=== PATIENT | female | born 1970 | race Caucasian/White ===

== ENCOUNTER 2016-11-09 07:55 | Day surgery (SDC) | payer OTHER ==
[~2016-11-09 07:55] MED LIST: Lactated Ringers 1,000 ML IV SCH; Lidocaine 1%/Sod Bicarbonate in NS 8.4% 1 ML Syringe IV PRN; Sodium Chloride 0.9% 10 ML Syringe FLUSH PRN
--- NOTE | 2016-11-09 08:27 | PCM.PREANE ---
Preanesthetic Assessment - Anesthesia/Transfusion/Family Hx Anesthesia History: Prior Anesthesia Without Reaction Family History of Anesthesia Reaction: No Transfusion History: No Prior Transfusion(s) Type of Transfusion Reactions: Reports: Unknown - Review of Systems General: No Symptoms Pulmonary: No Symptoms Cardiovascular: No Symptoms, Palpitations (resolved with ablation) Gastrointestinal: No symptoms Neurological: No Symptoms Other: Reports: Thyroid Problems, Sinus Problem (allergies and uses nasacort) - Physical Assessment NPO Status Date: 11/08/16 O2 Sat by Pulse Oximetry: 96 Respiratory Rate: 16 Blood Pressure: 145/90 Temperature: 97.4 F Height: 5 ft 6.5 in Weight: 122.016 kg ASA Class: 2 Mental Status: Alert & Oriented x3 Airway Class: Mallampati = 1 Dentition: Reports: Normal Dentition Thyro-Mental Finger Breadths: 3 Mouth Opening Finger Breadths: 3 ROM/Head Extension: Full Lungs: Clear to auscultation, Normal respiratory effort Cardiovascular: Regular Rate, Regular Rhythm - Lab Values: Laboratory Last Values WBC 7.47 K/mm3 (3.98-10.04) 11/07/16 16:38 RBC 4.50 M/mm3 (3.98-5.22) 11/07/16 16:38 Hgb 13.9 gm/L (11.2-15.7) 11/07/16 16:38 Hct 40.4 % (34.1-44.9) 11/07/16 16:38 MCV 89.8 fl (79.4-94.8) 11/07/16 16:38 MCH 30.9 pg (25.6-32.2) 11/07/16 16:38 MCHC 34.4 g/dl (32.2-35.5) 11/07/16 16:38 RDW Std Deviation 42.6 fL (36.4-46.3) 11/07/16 16:38 Plt Count 316 K/mm3 (182-369) 11/07/16 16:38 MPV 9.5 fl (9.4-12.3) 11/07/16 16:38 Sodium 139 mEq/L (136-145) 11/07/16 16:38 Potassium 3.5 mEq/L (3.5-5.1) 11/07/16 16:38 Chloride 104 mEq/L (98-107) 11/07/16 16:38 Carbon Dioxide 22 mEq/L (21-32) 11/07/16 16:38 Anion Gap 16.5 (5-15) H 11/07/16 16:38 BUN 8 mg/dL (7-18) 11/07/16 16:38 Creatinine 1.0 mg/dL (0.55-1.02) 11/07/16 16:38 Est Cr Clr Drug Dosing 68.51 mL/min 11/07/16 16:38 Estimated GFR (MDRD) > 60 mL/min (>60) 11/07/16 16:38 BUN/Creatinine Ratio 8.0 (14-18) L 11/07/16 16:38 Glucose 157 mg/dL (74-106) H 11/07/16 16:38 Calcium 8.9 mg/dL (8.5-10.1) 11/07/16 16:38 Total Bilirubin 0.4 mg/dL (0.2-1.0) 11/07/16 16:38 AST 17 U/L (15-37) 11/07/16 16:38 ALT 35 U/L (14-59) 11/07/16 16:38 Alkaline Phosphatase 73 U/L (46-116) 11/07/16 16:38 Total Protein 7.5 g/dl (6.4-8.2) 11/07/16 16:38 Albumin 3.9 g/dl (3.4-5.0) 11/07/16 16:38 Globulin 3.6 gm/dL 11/07/16 16:38 Albumin/Globulin Ratio 1.1 (1-2) 11/07/16 16:38 Free T4 1.06 ng/dL (0.76-1.46) 11/07/16 16:38 TSH 3rd Generation 1.582 uIU/mL (0.358-3.74) 11/07/16 16:38 HCG, Quant < 1.0 mIU/mL 11/07/16 16:38 Urine Color Dark yellow (Yellow) 11/07/16 16:38 Urine Appearance Slt cloudy (Clear) H 11/07/16 16:38 Urine pH 5.5 (5.0-8.0) 11/07/16 16:38 Ur Specific [place] 1.025 (1.005-1.030) 11/07/16 16:38 Urine Protein Trace (Negative) H 11/07/16 16:38 Urine Glucose (UA) Negative (Negative) 11/07/16 16:38 Urine Ketones Negative (Negative) 11/07/16 16:38 Urine Occult Blood Negative (Negative) 11/07/16 16:38 Urine Nitrite Negative (Negative) 11/07/16 16:38 Urine Bilirubin Negative (Negative) 11/07/16 16:38 Urine Urobilinogen 0.2 (0.2-1.0) 11/07/16 16:38 Ur Leukocyte Esterase Negative (Negative) 11/07/16 16:38 Blood Type O POSITIVE 11/07/16 16:38 Gel Antibody Screen Negative 11/07/16 16:38 - Allergies Allergies/Adverse Reactions: Allergies Allergy/AdvReac Type Severity Reaction Status Date / Time clindamycin Allergy Other Verified 11/08/16 15:49 Penicillins AdvReac Diarrhea Verified 11/08/16 15:49 - Blood Blood Available: No - Anesthesia Plan Pre-Op Medication Ordered: None - Acknowledgements Anesthesia Type Planned: General Anesthesia Pt an Appropriate Candidate for the Planned Anesthesia: Yes Alternatives and Risks of Anesthesia Discussed w Pt/Guardian: Yes Pt/Guardian Understands and Agrees with Anesthesia Plan: Yes PreAnesthesia Questionnaire HEENT History: Reports: Impaired Vision Other HEENT History: wears glasses Cardiovascular History: Reports: Other (See Below) Other Cardiovascular History: palpitations, SVT, non sustaining VTACH Respiratory History: Reports: None Gastrointestinal History: Reports: GERD Genitourinary History: Reports: Renal Calculus, Other (See Below) Other Genitourinary History: stress urinary incontinence, cystocele, rectocele, chronic kidney disease BASKET OPERATOR History: Reports: Other (See Below) Other OB/BYN History: ovarian cyst, uterine fibroids Musculoskeletal History: Reports: Other (See Below) Other Musculoskeletal History: R wrist tendonitis, R foot pain, achilles tendonitis, hand pain Neurological History: Reports: None, Other (See Below) Other Neuro History: foot numbness Psychiatric History: Reports: None Endocrine/Metabolic History: Reports: Hypothyroidism, Obesity/BMI 30+ Hematologic History: Reports: None Immunologic History: Reports: None Oncologic (Cancer) History: Reports: None Dermatologic History: Reports: None - Past Surgical History Head Surgeries/Procedures: Reports: None Cardiovascular Surgical History: Reports: Cardiac Ablation, Other (See Below) Other Cardiovascular Surgeries/Procedures: angiogram GI Surgical History: Reports: Colonoscopy, Other (See Below) Other GI Surgeries/Procedures: laparoscopy for adhesions Female Surgical History: Reports: Lithotripsy/ESWL Musculoskeletal Surgical History: Reports: Other (See Below) Other Musculoskeletal Surgeries/Procedures:: R foot surgery - SUBSTANCE USE Smoking Status *Q: Never Smoker Tobacco Use Within Last Twelve Months: No Second Hand Smoke Exposure: No Days Per Week of Alcohol Use: 0 (rare) Recreational Drug Use History: No - HOME MEDS Home Medications: Home Meds Gabapentin [Neurontin] 600 mg PO BID 07/27/15 [History] Melatonin 5 mg PO BEDTIME 07/27/15 [History] Omeprazole 20 mg PO DAILY 07/27/15 [History] Levothyroxine Sodium [Synthroid] 75 mcg PO DAILY 10/14/15 [History] Calcium Carbonate/Vitamin D3 [Calcium 600 + Vit D Tablet] 2 tab PO DAILY [History] Cholecalciferol (Vitamin D3) [Vitamin D3] 5,000 mg PO DAILY 11/08/16 [History] Triamcinolone Acetonide [Nasacort] 1 spray NASBOTH BID 11/08/16 [History] - CURRENT (IN HOUSE) MEDS Current Meds: Current Medications Lactated Ringer's (Ringers, Lactated) 1,000 mls @ 125 mls/hr IV ASDIRECTED VALENTIN Stop: 11/09/16 23:00 Lidocaine/Sodium Bicarbonate (Buffered Lidocaine 1% In Ns 8.4%) 0.25 ml IV ONETIME PRN PRN Reason: Prior to IV Start Stop: 11/09/16 18:00 Sodium Chloride (Saline Flush) 10 ml FLUSH ASDIRECTED PRN PRN Reason: Keep Vein Open Stop: 11/09/16 18:00 Discontinued Medications Lidocaine/Epinephrine (Xylocaine 1% With Epinephrine 1:100,000) Confirm Administered Dose 20 ml .ROUTE .STK-MED ONE Stop: 11/09/16 08:00 Sodium Chloride (Normal Saline) Confirm Administered Dose 50 ml .ROUTE .STK-MED ONE Stop: 11/09/16 08:01
[2016-11-09] MEDS ORDERED: Midazolam 1 MG/ML 2 ML SDV ONE (09:08)
[2016-11-09] MEDS ORDERED: fentaNYL 250 MCG/5 ML SDV ONE (09:08)
[2016-11-09] MEDS ORDERED: Propofol 200 MG/20 ML SDV ONE (09:08)
[2016-11-09] MEDS ORDERED: Ondansetron 4 MG/2 ML SDV ONE (09:10)
[2016-11-09] MEDS ORDERED: Dexamethasone 4 MG/ML 5 ML MDV ONE (09:10)
[2016-11-09] MEDS ORDERED: ceFAZolin 1 GM Vial ONE (09:10)
[2016-11-09] MEDS ORDERED: Lidocaine 1% 4 ML ONE (09:10)
[2016-11-09] MEDS ORDERED: Rocuronium 50 MG/5 ML Vial ONE (09:10)
[2016-11-09] MEDS: Sodium Chloride 0.9% 50 ML SDV ONE ×2 (09:37→09:47)
[2016-11-09] MEDS: Lidocaine 1% with EPINEPHrine 1:100,000 20 ML MDV ONE ×2 (09:37→09:47)
[2016-11-09] MEDS ORDERED: HYDROmorphone 1 MG/ML Syringe ONE (09:45)
[2016-11-09] MEDS ORDERED: Lactated Ringers 1,000 ML ONE (09:47)
[2016-11-09] MEDS ORDERED: Neostigmine Methylsulfate 10 MG/10 ML MDV ONE (11:04)
[2016-11-09] MEDS ORDERED: Ondansetron 4 MG/2 ML SDV IVPUSH PRN ×2 (11:19→11:31)
[2016-11-09] MEDS ORDERED: Ketorolac 30 MG/ML SDV IVPUSH SCH (11:30)
[2016-11-09] MEDS ORDERED: diphenhydrAMINE 50 MG/ML SDV IVPUSH PRN (11:31)
[2016-11-09] MEDS ORDERED: Meperidine PF 50 MG/ML Syringe IM PRN (11:31)
--- NOTE | 2016-11-09 11:34 | PCM.POSTAN ---
POST ANESTHESIA ASSESSMENT - MENTAL STATUS Mental Status: somnolent - VITAL SIGNS Pulse Rate: 93 SaO2: 93 Resp Rate: 10 Blood Pressure: 141/80 Temperature: 36.9 C - RESPIRATORY Respiratory Status: respiratory rate WNL, airway patent, O2 saturation stable - CARDIOVASCULAR CV Status: pulse rate WNL, blood pressure stable - GASTROINTESTINAL GI Status: no symptoms - PAIN Pain Score: 0 - POST OP HYDRATION Hydration Status: adequate & stable
--- NOTE | 2016-11-09 11:34 | PCM.OPNOTE ---
- General Post-Op/Procedure Note Date of Surgery/Procedure: 11/09/16 Operative Procedure(s): Total vaginal hysterectomy, left salpingectomy, anterior and posterior vaginal repair, modified Moschcowitz procedure, subfascial mid-urethral sling procedure Findings: Patient has a grade 2-3 cystocele, grade 2 rectocele, grade 2 uterine descensus , uterus is normal size, ovaries were functional and benign in appearance as were the fallopian tubes bilaterally. She had a gaping introitus that allowed a 4 finger breath evaluation. Pre Op Diagnosis: 1. Cystocele. 2. Rectocele. 3. Uterine prolapse. 4. Stress urinary incontinence Post-Op Diagnosis: Same Anesthesia Technique: General ET tube Other Anesthesia Type: Local anesthesia with lidocaine quarter percent with epinephrine-30 cc tota Primary Surgeon: Zain Hidalgo Secondary Surgeon: Bryanna Roque Anesthesia Provider: [place] New Pathology: Uterus, left fallopian tube Fluid Replacement, Intraop: 1,500 (Crystalloid) EBL in mLs: 100 Drain/Tube Comments:: A red rubber catheter was used to fill low bladder at the end of the procedure. Complications: None Condition: Good Free Text/Narrative:: Surgery duration: 87 minutes Condition: Good Complications: None Procedure: The patient was taken to the operating room. She was placed in supine position on the operating table. General endotracheal anesthesia and was accomplished. Patient was given Ancef 3 g IV preop for infection prophylaxis and had sequential compression stockings in place for DVT prophylaxis. After positioning, prep and drape were accomplished in a routine fashion. The patient was then operated upon. Sterile weighted speculum was placed in the vagina and cervix was visualized. Cervix was injected with lidocaine quarter percent with epinephrine-20 cc total. A full circumference incision was made through the cervical epithelium and cervical epithelium was pushed well back off the cervix. Posterior cul-de-sac was entered sharply. The left uterosacral ligament was then crossclamped with a LigaSure vessel closure system. This is developed in routine fashion. Same was done on the right side. Anterior cul-de-sac was then entered without problems. The uterine vasculature, remainder of cardinal ligament, broad ligament and eventually fallopian tube and upper broad ligament pedicles were then developed using LigaSure vessel closure system. At this time the fallopian tube on the left side was isolated and using LigaSure vessel closure system meso-salpinx was cauterized. This effectively removed the fallopian tube, leaving the ovary in place. The right fallopian tube looked normal but was very difficult to access and was left in place. The posterior cuff was then run from approximately the 2:00 to the 10:00 position posteriorly with a running lock suture of 0 Monocryl. Modified Moschcowitz stitch was placed using 0 Monocryl effectively reducing the size of the posterior cul-de- sac area and reapproximating uterosacral ligaments midline and attaching them to the vaginal cuff.Hemostasis was confirmed at this time. Sponge instrument and needle counts are correct. The pursestring suture of 0 Monocryl was then used to close the peritoneal cavity. The anterior vaginal epithelium was identified. The cephalad-most portion of the cystocele near the vaginal cuff was grasped with Allis clamps x2 processing 1-1/2 cm from the midline bilaterally. A third Allis clamp was placed midline approximately 1/2 cm from the urethral meatus. The cystocele epithelium was put on stretch. It was found be somewhat cornified due to chronic external exposure. The epithelium was then infiltrated with lidocaine quarter percent with epinephrine approximately 10 cc total. A midline incision was then made after a transverse incision was made between the 2 cephalad-most Allis clamps. The midline incision then allow dissection of the epithelium off the underlying vesicovaginal fascia. This is done adequately in a bilateral fashion. The cystocele was then reduced using proximally four 0 Monocryl sutures to reapproximate the lateral support tissue midline. When this was reduced the excess epithelium was removed bilaterally with a Metzenbaum scissors and the epithelium was reapproximated with running sutures of 3-0 Monocryl. Hemostasis was confirmed at this time. Vaginal cuff was then closed with a running suture of 0 Monocryl. The subfascial mid-urethral hammock/sling procedure was then performed. The epithelium overlying the urethra was then identified and was grasped with an Allis clamp 1 cm from the opening of the meatus and approximately 2-3 cm cephalad to that area. The skin overlying the medial aspect of the obturator foramen and the panty line area was identified and marked at a point just posterior to the origin of the abductor muscles. This area on each side and the sub-fascial jax of the vaginal epithelium were then infiltrated with lidocaine quarter percent with epinephrine solution. A midline incision was made overlying the urethra and the subfascial plane was developed bilaterally to the point of the posterior aspect of the pubic rami. Stab wounds were made through the epithelium at the medial aspect of the obturator foramen. The helical applicator through then used to place the mesh. Left side first, right side second. The mesh was applied to the applicator the applicator was pulled back through the folded towel machine operator foramen. The mesh was pulled up just below the urethra with a 15 mm dilator as a spacer to allow placement of the mesh in a tension- free position. The position of the mesh was again confirmed. The mesh was cut off at its below the skin surface. Again the tension-free position of the mesh was confirmed. The epithelium overlying the urethra was then closed with a short running suture of 3-0 Monocryl in a fashion to allow egress of potential bleeding. The skin incisions were closed at the end of the entire procedure with Dermabond skin glue. The posterior repair was performed at this time. The top of the rectocele was identified and grasped midline with an Allis clamp. The junction of the vaginal and vulvar epithelium at the 4:00 and 8:00 positions progress in a position such that when approximated midline with allow her to obtain a 2 fingerbreadth caliber to the vagina and a finger length depth to the vagina. This monitored as a procedure was performed to ensure adequacy for sexual function later on. The epithelium overlying the rectocele and the perineum was infiltrated with lidocaine quarter percent with epinephrine. A kassie-shaped piece of was removed from the introital area posteriorly. The epithelium cephalad was then undermined using Metzenbaum scissors. The epithelium was retracted bilaterally with Allis clamps. After dissection was made freeing up the underlying support tissue from the epithelium the rectocele was reduced using approximately 4 interrupted box shaped stitches of 0 Monocryl. This reduced the rectocele. The excess epithelium was removed with Metzenbaum scissors and the epithelium was then closed with a running suture of 3-0 Monocryl to the introital area. Approximately 4 V-type stitches of 0 Monocryl and used for the perineoplasty reapproximating lateral support tissue midline which extended the vagina and perineum in usual fashion. The epithelium was then closed in a routine episiotomy fashion using the 3-0 Monocryl suture. The bladder was filled with 180 cc of normal saline to facilitate earlier voiding and therefore discharged from the hospital. She was returned to supine position and awakened from general endotracheal anesthesia. She tolerated procedure well left the operating room in good condition. The patient is discharged from the operating room in good condition
[2016-11-09] MEDS: fentaNYL 100 MCG/2 ML SDV IVPUSH PRN ×2 (11:45→12:00)
[2016-11-09] MEDS: HYDROmorphone 0.5 MG/0.5 ML Syringe IVPUSH PRN ×2 (11:50→12:26)
[2016-11-09] MEDS: Acetaminophen/oxyCODONE 325-5 MG Tab PO PRN ×2 (12:52→17:31)
[2016-11-09 14:54] VITALS: BP 126/68
== END 2016-11-09 19:05 | disposition home or self-care (01) ==
LOC: JD.SDS 07:55 → JD.OB 15:39 → UNDOADMIN 15:41 → JD.SDS 19:05
PROVIDERS: ATTEND Obstetrics & Gynecology
PROC: 0UT97ZZ Resection of Uterus, Via Natural or Artificial Opening (ICD-10-PCS; principal; 2016-11-09)
PROC: 0UTC7ZZ Resection of Cervix, Via Natural or Artificial Opening (ICD-10-PCS; 2016-11-09)
PROC: 0UT67ZZ Resection of Left Fallopian Tube, Via Natural or Artificial Opening (ICD-10-PCS; 2016-11-09)
PROC: 0TSD0ZZ Reposition Urethra, Open Approach (ICD-10-PCS; 2016-11-09)
PROC: 0JQC0ZZ Repair Pelvic Region Subcutaneous Tissue and Fascia, Open Approach (ICD-10-PCS; 2016-11-09)
PROC: 0JQC0ZZ Repair Pelvic Region Subcutaneous Tissue and Fascia, Open Approach (ICD-10-PCS; 2016-11-09)
DX: N81.2 Incomplete uterovaginal prolapse (principal); N39.3 Stress incontinence (female) (male); N32.81 Overactive bladder; N88.8 Other specified noninflammatory disorders of cervix uteri; N80.0 Endometriosis of uterus; D25.1 Intramural leiomyoma of uterus; E66.9 Obesity, unspecified; Z68.41 Body mass index [BMI] 40.0-44.9, adult; E03.9 Hypothyroidism, unspecified; G62.9 Polyneuropathy, unspecified; K21.9 Gastro-esophageal reflux disease without esophagitis; Z87.442 Personal history of urinary calculi; Z79.899 Other long term (current) drug therapy; Z88.1 Allergy status to other antibiotic agents; Z88.0 Allergy status to penicillin; N18.9 Chronic kidney disease, unspecified
CPT/HCPCS: 36415; 57260; 57288; 58262; 80053; 81003; 84439; 84443; 84702; 85027; 86850; 86900; 86901; 88307; A9270; C1771; J0690; J1100; J1170; J1885; J2250; J2405; J2710; J3010; J7120; 00944; J2704

== ENCOUNTER 2017-12-29 15:22 | Emergency (ER) | payer OTHER ==
[2017-12-29 15:36] VITALS: BP 150/86
--- NOTE | 2017-12-29 18:36 | EDM.PDOC ---
ED HPI GENERAL MEDICAL PROBLEM - General Chief Complaint: Respiratory Problem Stated Complaint: SHORTNESS OF BREATH/WEAKNESS Time Seen by Provider: 12/29/17 18:00 Source of Information: Reports: Patient, Old Records (patient has with her her recent ER visit records including notes, labs and imaging results) History Limitations: Reports: No Limitations - History of Present Illness INITIAL COMMENTS - FREE TEXT/NARRATIVE: 47 year old female presents for evaluation and treatment of shortness of breath and weakness. Patient reports one week ago she had sinus surgery with ENT, Dr. More at [facility], in [place]. Reports several things were done including straightening her septum and opening up her sinuses. She was discharge home that day. Patient reports Monday she began experiencing shortness of breath. She felt like her symptoms worsened. Monday she contacted her ENT who instructed her to go to the ER due to concerns over a possible PE. Patient presented to the ER in [place] on Monday (12/26/17) where she had labs, an ekg and a CT pulmonary angiogram done. No PE was found. She then presented 2 days later (12/28/17) the to [place] ER again where she had repeat labs and chest xray and again nothing was found. She has not contacted her ENT since Monday when she was instructed to go to the ER. She is scheduled to have an echocardiogram on Monday01/03/18. Patient presented to her PCP office today for the shortness of breath. Her PCP sent her here for possible bilateral leg ultrasound. Patient reports since her symptoms started Monday they have progressively worsened. She reports she is "tired of breathing". Shortness of breath is worse on exertion. She reports associated weakness. States her legs feel cold. No pain in her legs or swelling in her legs. No chest pain or chest tightness. Duration: Day(s): (5) - Related Data Allergies Allergy/AdvReac Type Severity Reaction Status Date / Time clindamycin Allergy Other Verified 12/29/17 16:30 Penicillins AdvReac Diarrhea Verified 12/29/17 16:30 Home Meds: Home Meds Gabapentin [Neurontin] 600 mg PO BID 07/27/15 [History] Melatonin 5 mg PO BEDTIME 07/27/15 [History] Omeprazole 20 mg PO DAILY 07/27/15 [History] Levothyroxine Sodium [Synthroid] 88 mcg PO DAILY 10/14/15 [History] Calcium Carbonate/Vitamin D3 [Calcium 600 + Vit D Tablet] 2 tab PO DAILY [History] Cholecalciferol (Vitamin D3) [Vitamin D3] 5,000 mg PO DAILY 11/08/16 [History] Triamcinolone Acetonide [Nasacort] 1 spray NASBOTH BID 11/08/16 [History] Cefdinir [Omnicef] 300 mg PO BID 12/29/17 [History] Escitalopram [Lexapro] 15 mg PO DAILY 12/29/17 [History] Fish Oil/Marshall-3 Fatty Acids [Fish Oil 1,000 MG] 1 tab PO DAILY 12/29/17 [ History] LORazepam 0.5 mg PO TID PRN 12/29/17 [History] Multivitamin [Multivitamins] 1 tab PO DAILY 12/29/17 [History] Olopatadine HCl [Patanase] 2 spray IN BID 12/29/17 [History] Orphenadrine [Norflex] 100 mg PO BID PRN 12/29/17 [History] Rosuvastatin [Crestor] 5 mg PO DAILY 12/29/17 [History] predniSONE [Prednisone] 5 mg PO ASDIRECTED 12/29/17 [History] Past Medical History HEENT History: Reports: Impaired Vision Other HEENT History: wears glasses Cardiovascular History: Reports: Other (See Below) Other Cardiovascular History: palpitations, SVT, non sustaining VTACH Respiratory History: Reports: None Gastrointestinal History: Reports: GERD Genitourinary History: Reports: Renal Calculus, Other (See Below) Other Genitourinary History: stress urinary incontinence, cystocele, rectocele, chronic kidney disease [employer] History: Reports: Other (See Below) Other [employer]ER History: ovarian cyst, uterine fibroids Musculoskeletal History: Reports: Other (See Below) Other Musculoskeletal History: R wrist tendonitis, R foot pain, achilles tendonitis, hand pain Neurological History: Reports: None, Other (See Below) Other Neuro History: foot numbness Psychiatric History: Reports: None Endocrine/Metabolic History: Reports: Hypothyroidism, Obesity/BMI 30+ Hematologic History: Reports: None Immunologic History: Reports: None Oncologic (Cancer) History: Reports: None Dermatologic History: Reports: None - Past Surgical History Head Surgeries/Procedures: Reports: None HEENT Surgical History: Reports: Naso-Sinus Surgery Other HEENT Surgeries/Procedures: on Monday Cardiovascular Surgical History: Reports: Cardiac Ablation, Other (See Below) Other Cardiovascular Surgeries/Procedures: angiogram GI Surgical History: Reports: Colonoscopy, Other (See Below) Other GI Surgeries/Procedures: laparoscopy for adhesions Female Surgical History: Reports: Lithotripsy/ESWL Musculoskeletal Surgical History: Reports: Other (See Below) Other Musculoskeletal Surgeries/Procedures:: R foot surgery Social & Family History - Tobacco Use Smoking Status *Q: Never Smoker - Caffeine Use Caffeine Use: Reports: Tea - Recreational Drug Use Recreational Drug Use: No - Living Situation & Occupation Living situation: Reports: , with Family Occupation: Employed ED ROS GENERAL - Review of Systems Review Of Systems: See Below Constitutional: Reports: Malaise, Weakness Respiratory: Reports: Shortness of Breath Cardiovascular: Reports: Dyspnea on Exertion. Denies: Chest Pain Musculoskeletal: Denies: Leg Pain ED EXAM, GENERAL - Physical Exam Exam: See Below Exam Limited By: No Limitations General Appearance: Alert, WD/WN, Anxious, Mild Distress, Obese Eye Exam: Bilateral Eye: Normal Inspection Ears: Normal External Exam Nose: Normal Inspection Throat/Mouth: Normal Inspection, Normal Lips, Normal Oropharynx, Normal Voice, No Airway Compromise Neck: Normal Inspection, Non-Tender Respiratory/Chest: No Respiratory Distress, Lungs Clear, Normal Breath Sounds, No Accessory Muscle Use. No: Rhonchi, Wheezing, Stridor Cardiovascular: Normal Peripheral Pulses, Regular Rate, Rhythm, No Murmur Extremities: Normal Inspection, Non-Tender, Normal Capillary Refill. No: Wade' s Sign Neurological: Alert, Oriented, Normal Cognition Psychiatric: Normal Affect, Normal Mood Skin Exam: Warm, Dry, Normal Color EKG INTERPRETATION EKG Date: 12/29/17 Time: 18:30 Rhythm: NSR Rate (Beats/Min): 91 [place]: Normal P-Wave: Present QRS: Normal ST-T: Normal QT: Normal EKG Interpretation Comments: NSR at 91 bpm. No ischemic changes. No LAD. Possible LVH. QTc WNL. REviewed by myself and Dr. Beach. Course - Vital Signs Last Recorded V/S: Last Vital Signs Temp 97.1 F 12/29/17 15:32 Pulse 82 12/29/17 15:32 Resp 28 H 12/29/17 15:32 BP 150/86 H 12/29/17 15:32 Pulse Ox 99 12/29/17 15:32 - Orders/Labs/Meds Labs: Laboratory Tests 12/29/17 12/29/17 12/29/17 Range/Units 18:25 18:28 18:28 WBC 14.22 H (3.98-10.04) K/mm3 RBC 5.17 (3.98-5.22) M/mm3 Hgb 15.2 (11.2-15.7) gm/L Hct 45.5 H (34.1-44.9) % MCV 88.0 (79.4-94.8) fl MCH 29.4 (25.6-32.2) pg MCHC 33.4 (32.2-35.5) g/dl RDW Std Deviation 41.8 (36.4-46.3) fL Plt Count 349 (182-369) K/mm3 MPV 9.3 L (9.4-12.3) fl Neutrophils % (Manual) 77 H (40-60) % Band Neutrophils % 0 (0-10) % Lymphocytes % (Manual) 16 L (20-40) % Atypical Lymphs % 1 % Monocytes % (Manual) 6 (2-10) % Eosinophils % (Manual) 0 L (0.7-5.8) % Basophils % (Manual) 0 L (0.1-1.2) Platelet Estimate Adequate Plt Morphology Comment Normal RBC Morph Comment Normal D-Dimer, Quantitative (0.19-0.50) mg/L Sodium 137 (136-145) mEq/L Potassium 4.6 (3.5-5.1) mEq/L Chloride 101 (98-107) mEq/L Carbon Dioxide 24 (21-32) mEq/L Anion Gap 16.6 H (5-15) BUN 11 (7-18) mg/dL Creatinine 0.9 (0.55-1.02) mg/dL Est Cr Clr Drug Dosing 73.90 mL/min Estimated GFR (MDRD) > 60 (>60) mL/min BUN/Creatinine Ratio 12.2 L (14-18) Glucose 178 H (74-106) mg/dL Calcium 9.5 (8.5-10.1) mg/dL Total Bilirubin 0.6 (0.2-1.0) mg/dL AST 15 (15-37) U/L ALT 31 (14-59) U/L Alkaline Phosphatase 72 (46-116) U/L Creatine Kinase 21 L (26-192) U/L Troponin I < 0.017 (0.00-0.056) ng/mL C-Reactive Protein 0.2 (<1.0) mg/dL NT-Pro-B Natriuret Pep (0-125) pg/mL Total Protein 7.8 (6.4-8.2) g/dl Albumin 3.9 (3.4-5.0) g/dl Globulin 3.9 gm/dL Albumin/Globulin Ratio 1.0 (1-2) TSH 3rd Generation 0.851 (0.358-3.74) uIU/mL Urine Color (Yellow) Urine Appearance (Clear) Urine pH (5.0-8.0) Ur Specific [place] (1.005-1.030) Urine Protein (Negative) Urine Glucose (UA) (Negative) Urine Ketones (Negative) Urine Occult Blood (Negative) Urine Nitrite (Negative) Urine Bilirubin (Negative) Urine Urobilinogen (0.2-1.0) Ur Leukocyte Esterase (Negative) Urine RBC (0-5) /hpf Urine WBC (0-5) /hpf Ur Epithelial Cells (0-5) /hpf Urine Bacteria (FEW) /hpf Urine Mucus (FEW) /hpf 12/29/17 12/29/17 12/29/17 Range/Units 18:28 18:28 18:45 WBC (3.98-10.04) K/mm3 RBC (3.98-5.22) M/mm3 Hgb (11.2-15.7) gm/L Hct (34.1-44.9) % MCV (79.4-94.8) fl MCH (25.6-32.2) pg MCHC (32.2-35.5) g/dl RDW Std Deviation (36.4-46.3) fL Plt Count (182-369) K/mm3 MPV (9.4-12.3) fl Neutrophils % (Manual) (40-60) % Band Neutrophils % (0-10) % Lymphocytes % (Manual) (20-40) % Atypical Lymphs % % Monocytes % (Manual) (2-10) % Eosinophils % (Manual) (0.7-5.8) % Basophils % (Manual) (0.1-1.2) Platelet Estimate Plt Morphology Comment RBC Morph Comment D-Dimer, Quantitative < 0.19 L (0.19-0.50) mg/L Sodium (136-145) mEq/L Potassium (3.5-5.1) mEq/L Chloride (98-107) mEq/L Carbon Dioxide (21-32) mEq/L Anion Gap (5-15) BUN (7-18) mg/dL Creatinine (0.55-1.02) mg/dL Est Cr Clr Drug Dosing mL/min Estimated GFR (MDRD) (>60) mL/min BUN/Creatinine Ratio (14-18) Glucose (74-106) mg/dL Calcium (8.5-10.1) mg/dL Total Bilirubin (0.2-1.0) mg/dL AST (15-37) U/L ALT (14-59) U/L Alkaline Phosphatase (46-116) U/L Creatine Kinase (26-192) U/L Troponin I (0.00-0.056) ng/mL C-Reactive Protein (<1.0) mg/dL NT-Pro-B Natriuret Pep 16 (0-125) pg/mL Total Protein (6.4-8.2) g/dl Albumin (3.4-5.0) g/dl Globulin gm/dL Albumin/Globulin Ratio (1-2) TSH 3rd Generation (0.358-3.74) uIU/mL Urine Color Yellow (Yellow) Urine Appearance Clear (Clear) Urine pH 7.0 (5.0-8.0) Ur Specific [place] 1.015 (1.005-1.030) Urine Protein Negative (Negative) Urine Glucose (UA) Negative (Negative) Urine Ketones Negative (Negative) Urine Occult Blood Negative (Negative) Urine Nitrite Negative (Negative) Urine Bilirubin Negative (Negative) Urine Urobilinogen 0.2 (0.2-1.0) Ur Leukocyte Esterase Negative (Negative) Urine RBC Not seen (0-5) /hpf Urine WBC Not seen (0-5) /hpf Ur Epithelial Cells 0-5 (0-5) /hpf Urine Bacteria Not seen (FEW) /hpf Urine Mucus Not seen (FEW) /hpf - Radiology Interpretation Free Text/Narrative:: 2 view chest xray reviewed by myself and Dr. Forbes shows no acute intrathoracic process. - Re-Assessments/Exams Free Text/Narrative Re-Assessment/Exam: 12/29/17 21:26 I reviewed the labs, ekg and imaging with the patient. Patient has been up and walking around the ED with the assistance of her and did ok. We discussed admission to the hospital. I do feel an echocardiogram is an appropriate next step, however, we would be unable to get one until Monday. I do not feel she needs one emergently. She is scheduled to have one on Monday. We discussed if she were to come in to the hospital nothing would be done, other than monitoring, until Monday. She would like to go home and return if her symptoms change. It is possible her perceived shortness of breath is related to vocal cord dysfunction. I question if when she was intubated for anesthesia her vocal cords were damaged. She would require a scope to confirm this which is something her ENT would be able to do. I encouraged her to have the echocardiogram done Monday as planned and contact her ENT for earlier follow-up next week. Encouraged to rest over the weekend. She is encouraged to return if her symptoms change or worsen. Decided against bilateral leg ultrasounds as her d-dimer is negative and she has no swelling or pain in her legs. Discharge instructions as documented . Departure - Departure Time of Disposition: 21:28 Disposition: Home, Self-Care 01 Condition: Fair Clinical Impression: Shortness of breath - Discharge Information Instructions: Shortness of Breath, Adult, [id number] Referrals: Karine Long, [facility] [Primary Care Provider] - Forms: ED Department Discharge Additional Instructions: Over the weekend make sure you are getting plenty of rest. Echo Monday as planned. Recommend contacting your ear, nose and throat provider to get a more urgent follow-up to ensure that your shortness of breath is not more upper respiratory. follow-up with your primary care provider next week for recheck. Please return to the ER if your symptoms change or worsen.
--- NOTE | 2018-01-01 11:15 | CR ---
Chest: Two views of the chest were obtained. Comparison: Prior chest x-ray of 07/27/15. Heart size and mediastinum are within normal limits. Lungs are clear without acute parenchymal change. Slight degenerative spurring is noted within the spine. Impression: 1. Nothing acute is seen on two-view chest x-ray. Diagnostic code #1
== END 2017-12-29 21:32 | disposition home or self-care (01) ==
LOC: JD.ED 15:22
DX: R06.02 Shortness of breath (principal); K21.9 Gastro-esophageal reflux disease without esophagitis; E03.9 Hypothyroidism, unspecified; Z79.899 Other long term (current) drug therapy
CPT/HCPCS: 36415; 71046; 71046-26; 80053; 81001; 82550; 83880; 84443; 84484; 85007; 85027; 85379; 86140; 93005; 99285-25